=== PATIENT | male | born 1960 | race Caucasian/White ===

== ENCOUNTER 2024-05-28 19:51 | Emergency (ER) | payer MEDICAID ==
[~2024-05-28] VITALS: Ht 172.7 cm; Wt 65.0 kg
[2024-05-28 20:00] VITALS: O2SAT 96
[2024-05-28 21:06] LABS: CHLORIDE 104 mEq/L (98-107); POTASSIUM 4.1 mEq/L (3.5-5.1); SODIUM 139 mEq/L (136-145)
[2024-05-28 21:07] LABS: CARBON DIOXIDE 20 mEq/L (21-32)
[2024-05-28 21:08] LABS: BASOPHILS % 0.4 % (0.0-2.0); CALCIUM 9.5 mg/dL (8.7-10.4); EOSINOPHILS % 2.2 % (0.0-5.0); HEMATOCRIT. 42.3 % (42.0-52.0); HEMOGLOBIN. 14.1 g/dL (14.0-18.0); LYMPHOCYTES % 21.7 % (20.0-50.0); MEAN CORPUSCULAR HEMOGLOBIN 32.1 pg (28.0-32.0); MEAN CORPUSCULAR HGB CONC 33.4 g/dL (31.0-37.0); MEAN PLATELET VOLUME 6.5 fl (7.4-10.4); MONOCYTES % 7.9 % (2.0-8.0); NEUTROPHILS % 67.8 % (40.0-76.0); PLATELET 259 x1000/uL (130-400); RED BLOOD CELL COUNT 4.41 mill/uL (4.7-6.1); RED CELL DISTRIBUTION WIDTH 13.3 % (11.6-14.6); WHITE BLOOD COUNT 5.9 x1000/uL (4.5-11.0)
[2024-05-28 21:12] LABS: CREATININE 1.1 mg/dL (0.6-1.3); GLUCOSE 78 mg/dL (70-105); UREA NITROGEN BLOOD 22 mg/dL (9-23)
[2024-05-28 21:24] LABS: ETHANOL BLOOD < 10 mg/dL (<10)
[2024-05-28] MEDS ORDERED: KEPP500 MT (23:35)
[2024-05-28] MEDS: LEVETIRACETAM 500MG PREMIX 100 ML IV ONE (23:45)
[2024-05-28] MEDS ORDERED: LEVETIRACETAM 500MG PREMIX 100 ML IV ONE (23:45)
[2024-05-29 03:43] VITALS: TEMP 36.39180; O2SAT 100
[2024-05-29 03:52] VITALS: BP 128/76; PULSE 68; RESP 16
== END 2024-05-29 05:02 | disposition home or self-care (01) ==
LOC: ER 19:51
DX: G40.909 Epilepsy, unspecified, not intractable, without status epilepticus (principal); E11.9 Type 2 diabetes mellitus without complications; Z21 Asymptomatic human immunodeficiency virus [HIV] infection status; I10 Essential (primary) hypertension
CPT/HCPCS: 80048; 80320; 85025; 36415; 70450; 96365; 99285; J1953; G0480